=== PATIENT | female | born 1960 | race African-American/Black ===

== ENCOUNTER 2023-10-04 06:48 | Day surgery (SDC) | payer BC, MEDICAID ==
[~2023-10-04] VITALS: Ht 172.7 cm; Wt 106.6 kg
[2023-10-04] MEDS ORDERED: MIDAZOLAM HCL 5 MG/5 ML VIAL ONE (08:38)
[2023-10-04] MEDS ORDERED: fentaNYL CITRATE/PF 100 MCG/2 ML AMP ONE (08:38)
[2023-10-04 11:58] VITALS: O2SAT 99
[2023-10-04 13:58] VITALS: BP_SYST 148; PULSE 82; RESP 25
== END 2023-10-04 10:17 | disposition home or self-care (01) ==
LOC: SOR 06:48 → SMU 06:49 → SOR 10:17
PROVIDERS: ATTEND Internal Medicine Gastroenterology
DX: Z12.11 Encounter for screening for malignant neoplasm of colon (principal); K63.5 Polyp of colon; K64.9 Unspecified hemorrhoids; J44.9 Chronic obstructive pulmonary disease, unspecified; I10 Essential (primary) hypertension; Z79.899 Other long term (current) drug therapy
CPT/HCPCS: 45385; 99152; 88305; 99153; G0378; J2250; J3010